=== PATIENT | male | born 2000 | race Native Hawaiian/Other Pacific Islander ===

== ENCOUNTER 2020-04-09 11:37 | Emergency (ER) | payer SELFPAY ==
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
[2020-04-09] MEDS ORDERED: DIPHtheria,PERTUSSIS(ACELL),TETANUS VACCINE/PF 0.5 ML VIAL IM ONE (12:45)
[2020-04-09] MEDS ORDERED: HYDROmorphone 1 MG/1 ML INJ IV ONE ×2 (12:45→15:03)
[2020-04-09] MEDS ORDERED: ONDANSETRON 4 MG/2 ML INJ IV ONE (12:45)
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
[2020-04-09 16:41] VITALS: BP 128/74
== END 2020-04-09 16:54 | disposition other institution (70) ==
LOC: ED 11:37
DX: S82.852B Displaced trimalleolar fracture of left lower leg, initial encounter for open fracture type I or II (principal); W34.00XA Accidental discharge from unspecified firearms or gun, initial encounter; Y93.89 Activity, other specified; Y92.89 Other specified places as the place of occurrence of the external cause; Y99.8 Other external cause status
CPT/HCPCS: 73590; 90471; 90715; 96365; 96366; 96375; 96376; 99285; J0690; J1170; J2405